=== PATIENT | male | born 1985 | race Caucasian/White ===

== ENCOUNTER 2018-10-03 14:09 | Emergency (ER) | payer OTHER ==
[~2018-10-03] VITALS: Ht 185.4 cm; Wt 102.0 kg
--- NOTE | 2018-10-03 14:25 | NUR ---
ALONZO Mckeon student at bedside.
--- NOTE | 2018-10-03 15:13 | NUR ---
Bedside SBAR report received from [employer]NF[facility]. Pt's splint from removed and pt reports feeling back to right foot.
--- NOTE | 2018-10-03 16:10 | NUR ---
EDTs at bedside for splint.
[2018-10-03 17:44] VITALS: BP 134/84
== END 2018-10-03 17:46 | disposition home or self-care (01) ==
LOC: ED 14:34
DX: S82.841A Displaced bimalleolar fracture of right lower leg, initial encounter for closed fracture (principal); W19.XXXA Unspecified fall, initial encounter; Y93.89 Activity, other specified; Y92.89 Other specified places as the place of occurrence of the external cause; Y99.8 Other external cause status
CPT/HCPCS: 29515; 99283

== ENCOUNTER 2018-10-07 11:03 | Day surgery (SDC) | payer OTHER ==
[~2018-10-07] VITALS: Ht 185.4 cm; Wt 103.9 kg
[2018-10-07] MEDS ORDERED: FENTANYL PF 100 MCG/2ML ONE ×3 (11:13→13:26)
[2018-10-07] MEDS ORDERED: MIDAZOLAM 1 MG/ML, 2ML ONE (11:13)
[2018-10-07 11:23] VITALS: BP 171/78
[2018-10-07] MEDS ORDERED: ACET-76 PO (11:28)
[2018-10-07] MEDS ORDERED: HYDR-3240 PO (11:28)
[2018-10-07] MEDS ORDERED: PLEASE ENTER HEIGHT AND WEIGHT MC SCH (11:30)
[2018-10-07] MEDS ORDERED: KETOROLAC 30 MG/1 ML ONE (11:57)
[2018-10-07] MEDS ORDERED: LACTATED RINGERS 1,000 ML IV SCH (12:00)
[2018-10-07] MEDS ORDERED: ONDANSETRON 2MG/ML, 2ML ONE (12:11)
[2018-10-07] MEDS ORDERED: PROPOFOL 10 MG/ML, 20ML ONE (12:11)
[2018-10-07] MEDS ORDERED: CEFAZOLIN 1,000 MG ONE (12:11)
[2018-10-07] MEDS ORDERED: DEXAMETHASONE 4 MG/ML, 1ML ONE (12:11)
[2018-10-07] MEDS ORDERED: ONDANSETRON 2MG/ML, 2ML IV PRN (12:30)
[2018-10-07] MEDS ORDERED: ACETAMINOPHEN 325 MG TABLET PO PRN (12:30)
[2018-10-07] MEDS ORDERED: ALBUTEROL/IPRATROPIUM 2.5MG/0.5MG, 3 ML NPPB PRN (12:30)
[2018-10-07] MEDS ORDERED: MIDAZOLAM 1 MG/ML, 2ML IV PRN (12:30)
[2018-10-07] MEDS ORDERED: OXYcodone 5 MG/5 ML ORAL.SOL UDC PO PRN (12:30)
[2018-10-07] MEDS ORDERED: FENTANYL PF 100 MCG/2ML IV PRN (12:30)
[2018-10-07] MEDS ORDERED: hydrALAzine 20 MG/ML, 1ML IV PRN (12:30)
[2018-10-07] MEDS ORDERED: DIAZEPAM 5 MG/ML, 2ML IVPush PRN (12:30)
[2018-10-07] MEDS ORDERED: HYDROmorphone 2 MG/ML, 1ML IVPush PRN (12:30)
[2018-10-07] MEDS ORDERED: PROMETHAZINE 25 MG/ML, 1ML IV PRN (12:30)
[2018-10-07] MEDS ORDERED: SCOPOLAMINE PATCH, 1.5MG PATCH.TD72 TD PRN (12:30)
[2018-10-07] MEDS ORDERED: MEPERIDINE/PF 25MG/0.5ML IVPush PRN (12:30)
[2018-10-07] MEDS ORDERED: LIDOCAINE-MPF 2% ,5ML ONE (13:57)
[2018-10-07] MEDS ORDERED: BUPIVACAINE/PF 0.5% ONE (13:57)
[2018-10-07] MEDS ORDERED: MEPERIDINE/PF 25MG/ML,1ML ONE (14:13)
== END 2018-10-07 16:15 | disposition home or self-care (01) ==
LOC: OUT 11:03
PROVIDERS: ATTEND Orthopaedic Surgery
DX: S82.841A Displaced bimalleolar fracture of right lower leg, initial encounter for closed fracture (principal); S93.431A Sprain of tibiofibular ligament of right ankle, initial encounter; Z79.891 Long term (current) use of opiate analgesic; W19.XXXA Unspecified fall, initial encounter; Y93.89 Activity, other specified; Y92.89 Other specified places as the place of occurrence of the external cause; Y99.8 Other external cause status
CPT/HCPCS: 27814; 27829; 64445; 64447; 73610; 76000; C1713; C1769; J0690; J1100; J1885; J2175; J2250; J2405; J2704; J3010; J7120

== ENCOUNTER 2019-07-28 13:17 | Emergency (ER) | payer OTHER ==
[~2019-07-28] VITALS: Ht 185.4 cm; Wt 103.0 kg
[~2019-07-28 13:17] MED LIST: ACET-76 PO; HYDR-3240 PO
--- NOTE | 2019-07-28 13:50 | NUR ---
N/V/D X 2 DAYS, TODAY BLACK STOOL HAS TAKEN PEPTO BISMAL
--- NOTE | 2019-07-28 13:55 | NUR ---
ALSO WITH SORE THROAT, NASAL CONGESTION, COUGH, INTERMITTENT UNMEASURED FEVER
[2019-07-28 13:56] VITALS: BP 146/100
--- NOTE | 2019-07-28 14:13 | NUR ---
LAB IN ROOM.
[2019-07-28 14:30] LABS: BASOPHILS # (AUTO) 0.02 x10^3/uL (0-0.1); BASOPHILS % (AUTO) 1 % (0-1); EOSINOPHILS # (AUTO) 0.24 x10^3/uL (0-0.4); EOSINOPHILS % (AUTO) 7 % (1-7); LYMPHOCYTES # (AUTO) 0.86 x10^3/uL (1-3.4); LYMPHOCYTES % (AUTO) 23 % (22-44); MD NO; MEAN CORPUSCULAR HEMOGLOBIN 29.3 pg (27.5-34.5); MEAN CORPUSCULAR HGB CONC 34.8 g/dL (33.2-36.2); MEAN CORPUSCULAR VOLUME 84.2 fL (81-97); MEAN PLATELET VOLUME 7.8 fL (7.4-10.4); MONOCYTES # (AUTO) 0.62 x10^3/uL (0.2-0.8); MONOCYTES % (AUTO) 17 % (2-9); NEUTROPHILS # (AUTO) 1.99 x10^3/uL (1.8-6.8); NEUTROPHILS % (AUTO) 54 % (42-75); PLATELET COUNT 148 x10^3/uL (130-400); RED BLOOD COUNT 6.31 x10^6/uL (4.38-5.82); RED CELL DISTRIBUTION WIDTH 13.2 % (9.4-14.8)
[2019-07-28 14:36] LABS: ALANINE AMINOTRANSFERASE 43 U/L (12-78); ALBUMIN 3.8 g/dL (3.4-5.0); ANION GAP 6 mmol/L (5-15); CALCIUM 8.7 mg/dL (8.5-10.1); CHLORIDE 107 mmol/L (98-107)
[2019-07-28 14:38] LABS: ALKALINE PHOSPHATASE 49 U/L (45-117); BILIRUBIN,TOTAL 1.1 mg/dL (0.2-1.0)
--- NOTE | 2019-07-28 14:46 | NUR ---
LABS RESULTED. PT IS UP FOR RECHECK AT THIS TIME.
--- NOTE | 2019-07-28 15:56 | NUR ---
Patient given discharge instructions and they have confirmed that they understand the instructions. Patient ambulatory with steady gait.
== END 2019-07-28 15:57 | disposition home or self-care (01) ==
LOC: ED 15:40
DX: R11.2 Nausea with vomiting, unspecified (principal); R19.7 Diarrhea, unspecified
CPT/HCPCS: 36415; 80053; 82962; 83690; 85025; 99283